=== PATIENT | male | born 1960 | race Caucasian/White ===

== ENCOUNTER → 2016-10-27 | Outpatient (CLI) | payer BC ==
[~2016-10-27] MED LIST: TRAM100T2 PO
--- NOTE | 2016-10-27 15:19 | RADRPT ---
PROCEDURE: XR Right hip and pelvis. CLINICAL INDICATION: Right hip pain and pelvic pain. TECHNIQUE: 3 views. Frontal pelvis. Frontal and lateral right hip. COMPARISON: 04/23/2015. 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 There are moderate degenerative changes of the right hip with joint space narrowing, subchondral scl erosis, and osteophytes. There is no fracture or dislocation. There is no lytic or blastic lesion. The sacroiliac joints are unremarkable. IMPRESSION: 1. Satisfactory postoperative appearance of the left hip. 2. Moderate degenerative changes of the right hip. RPTAT: QQ .Fernie Farrell MD, MD Date Time Electronically viewed and signed by .Fernie Farrell MD, MD on 10/27/2016 15:18 .R/
== END | disposition home or self-care (01) ==
LOC: HKI 14:13
PROVIDERS: ATTEND Orthopaedic Surgery
DX: Z47.1 Aftercare following joint replacement surgery (principal); M25.551 Pain in right hip; Z96.642 Presence of left artificial hip joint
CPT/HCPCS: 73502; G0463